=== PATIENT | male | born 1985 | race African-American/Black ===

== ENCOUNTER 2018-01-15 05:55 | Emergency (ER) | payer MEDICAID ==
[2018-01-15] MEDS: HYDROCODONE/APAP (5/325) TAB PO (08:08)
[2018-01-15] MEDS: ONDANSETRON (ODT) 4 MG TAB ODT (08:08)
== END 2018-01-15 09:09 | disposition home or self-care (01) ==
LOC: FTE 05:55
DX: M54.5 Low back pain (principal); I10 Essential (primary) hypertension; E11.9 Type 2 diabetes mellitus without complications; F17.210 Nicotine dependence, cigarettes, uncomplicated; J45.909 Unspecified asthma, uncomplicated; Z79.84 Long term (current) use of oral hypoglycemic drugs
CPT/HCPCS: 72072; 72100; 99283-25